=== PATIENT | male | born 1955 | race Two or more races ===

== ENCOUNTER 2021-07-10 19:08 | Emergency (ER) | payer MEDICAID, SELFPAY ==
[2021-07-10 19:10] VITALS: BP 172/85; PULSE 78; RESP 20; TEMP 36.4; O2SAT 99; BMI 25.0
--- NOTE | 2021-07-10 20:25 | EKG12_ITS ---
Test Reason : DYSRHYTHMIA Blood Pressure : / mmHG Vent. Rate : 068 BPM Atrial Rate : 068 BPM P-R Int : 130 ms QRS Dur : 078 ms QT Int : 392 ms P-R-T Axes : 073 042 075 degrees QTc Int : 416 ms Sinus rhythm with Premature atrial complexes Nonspecific ST abnormality Abnormal ECG Confirmed by DEBORAH HUANG, MILAN ([id number]), editor & co founder HERBIE ROMEO ([id number]) on 07/16/2021 2:20:05 PM Referred By: MITA Confirmed By:MILAN CABRERA MD
--- NOTE | 2021-07-10 20:35 | EX.ED.DYSGE1 ---
HPI History of Present Illness Chief Complaint: General Illness Informant: patient Onset/Context/Timing Onset: Weeks (6) Context: Gradual Onset Timing: Continuous Quality: Pressure Location: Chest Worsened by: Nothing Relieved by: Nothing Narrative Narrative: Patient presents with shortness of breath that has been getting progressively worse over the past 6 weeks. Patient feels like there is a pressure on his chest. Patient states he was diagnosed with COVID-19 approximately 6 weeks ago when this all began. Patient states nothing makes it worse and nothing makes it better. Patient also admits to some paresthesias in his feet. Patient states these are worse when he walks. Patient admits to subjective fevers and chills. [facility] Medical History COPD (chronic obstructive pulmonary disease) COVID Diabetes Hepatitis C virus Allergy/AdvReac Type Severity Reaction Status Date / Time No Known Allergies Allergy Verified 07/10/21 19:14 Social History Smoking Status: Current every day smoker tobacco type: cigarettes ROS ROS ED Constitutional Constitutional ED: Reports fever(s) and subjective Eyes Eyes: Reports blurry vision and change in vision ENT ENT ED: Reports rhinorrhea and sore throat Cardiovascular Cardiovascular: Reports chest pain; Denies palpitations Respiratory/Chest Respiratory/Chest: Reports cough and dyspnea Gastrointestinal Gastrointestinal: Reports nausea and vomiting Genitourinary Genitourinary ED: Reports dysuria and urinary frequency Musculoskeletal Musculoskeletal: Reports back pain and neck pain Integumentary Denies abscess or rash Neurologic Neurologic: Reports headache(s) and paresthesias Allergic/Immunologic Allergic/Immunologic ED: Denies mouth swelling or urticaria EXAM Physical Exam Const Vital Signs: 07/10/21 19:10 07/10/21 19:40 07/10/21 21:45 Temperature 97.5 F L Temperature Source Temporal Pulse Rate 78 67 Respiratory Rate 20 H 18 Respiratory Effort Short of Breath Blood Pressure 172/85 H 178/87 H Blood Pressure Mean 114 117 Pulse Ox 99 97 Oxygen Delivery Method Room Air Room Air 07/10/21 23:36 07/11/21 01:32 Temperature Temperature Source Pulse Rate 62 77 Respiratory Rate 16 14 Respiratory Effort Blood Pressure 148/58 H 179/62 H Blood Pressure Mean 88 101 Pulse Ox 96 97 Oxygen Delivery Method Room Air Room Air Positive well nourished, well developed and unkempt General Appearance ED: unkempt, well developed and NAD HEENT Reports moist mucous membranes Neck supple and no JVD Resp normal respiratory effort and clear to auscultation bilaterally Cardio regular rate, regular rhythm and no murmurs GI normal to inspection, nondistended, normoactive bowel sounds and non-tender Palpation: soft Extremity normal to inspection General Extremety ED: Negative for edema or tenderness General Extremity: Negative for edema Neuro oriented x3, CN's II-XII intact bilaterally and no sensory deficits noted Sensorium / Orientation: alert Motor Exam: strength 5/5 throughout Psych mental status grossly normal Appearance: unkempt Skin no rashes or lesions noted MDM MDM MDM Narrative Medical decision making narrative: Patient was given IV fluids. EKG was obtained. On my interpretation, it showed a normal sinus rhythm with a rate of 68. There are occasional PACs. AR interval, QRS interval, and QTc intervals were all normal. [place] was normal. There are nonspecific ST-T wave changes. CBC was within normal limits. Comprehensive metabolic profile showed an elevated glucose of 678. Sodium was 127, chloride was 90, and BUN was 28. Urinalysis does not show any evidence of urinary tract infection. Portable 1 view chest x-ray was obtained. On my interpretation, lung traylor are clear. There is normal cardiac silhouette. Bony thorax is normal. There is no acute process noted. Radiologist also interpreted the x-ray and agrees. Urine glucose was 1000. Patient was given 20 units of subcu Humalog. Patient was given another bolus of normal saline. Repeat basic metabolic profile was obtained. Glucose improved to 252. Sodium and chloride were normal. BUN was improved to 23. Anion gap was still normal. Patient was feeling better on reevaluation. Patient was instructed to avoid high sugar foods. Patient was instructed to follow-up with his primary care physician in 3 to 5 days. Patient was instructed return if worse in any way. Patient understood and was agreeable with the plan. All questions were answered. Lab Data Attestation: I reviewed the patient's lab results. Labs: Laboratory Results - last 24 hr 07/10/21 07/10/21 07/10/21 19:55 19:55 20:50 WBC 10.6 RBC 5.57 Hgb 17.3 H Hct 48.6 MCV 87.3 MCH 31.1 MCHC 35.6 RDW Std Deviation 39.8 RDW Coeff of Reina 12.4 Plt Count 163 MPV 11.1 Immature Gran % (Auto) 3.000 H Neut % (Auto) 67.5 Lymph % (Auto) 18.1 L [place] % (Auto) 9.2 Eos % (Auto) 1.5 Baso % (Auto) 0.7 Absolute Neuts (auto) 7.1 Absolute Lymphs (auto) 1.91 Nucleated RBC % 0 Sodium 127 L Potassium 4.7 Chloride 90 L Carbon Dioxide 31.0 Anion Gap 6 BUN 28 H Creatinine 1.04 Estim Creat Clear Calc 67.09 Est GFR (MDRD) Af Amer 92 Est GFR (MDRD) Non-Af 76 BUN/Creatinine Ratio 26.9 H Glucose 678 H* Calcium 9.3 Total Bilirubin 0.70 AST 108 H ALT 333 H Alkaline Phosphatase 251 H Troponin I High Sens 73 Total Protein 6.7 Albumin 2.8 L Globulin 3.9 Albumin/Globulin Ratio 0.7 L Lipase 158 Urine Color Yellow Urine Clarity Clear Urine pH 6.0 Ur Specific [place] 1.010 Urine Protein Negative Urine Glucose (UA) 1000 H Urine Ketones 5 H Urine Occult Blood 10 H Urine Nitrite Negative Urine Bilirubin Negative Urine Urobilinogen Normal Ur Leukocyte Esterase Negative Urine RBC 0-5 SEEN Urine WBC 0-5 SEEN Ur Squamous Epith Cells 0 SEEN Urine Bacteria 0 SEEN Urine Mucus 0 SEEN POC Glucose 07/10/21 07/11/21 07/11/21 23:50 01:15 01:55 WBC RBC Hgb Hct MCV MCH MCHC RDW Std Deviation RDW Coeff of Reina Plt Count MPV Immature Gran % (Auto) Neut % (Auto) Lymph % (Auto) [place] % (Auto) Eos % (Auto) Baso % (Auto) Absolute Neuts (auto) Absolute Lymphs (auto) Nucleated RBC % Sodium Cancelled 137 Potassium Cancelled 4.0 Chloride Cancelled 101 Carbon Dioxide Cancelled 29.0 Anion Gap Cancelled 7 BUN Cancelled 23 H Creatinine Cancelled 0.75 Estim Creat Clear Calc Cancelled 93.03 Est GFR (MDRD) Af Amer Cancelled 135 Est GFR (MDRD) Non-Af Cancelled 112 BUN/Creatinine Ratio Cancelled 30.8 H Glucose Cancelled 252 H Calcium Cancelled 8.2 L Total Bilirubin AST ALT Alkaline Phosphatase Troponin I High Sens Total Protein Albumin Globulin Albumin/Globulin Ratio Lipase Urine Color Urine Clarity Urine pH Ur Specific [place] Urine Protein Urine Glucose (UA) Urine Ketones Urine Occult Blood Urine Nitrite Urine Bilirubin Urine Urobilinogen Ur Leukocyte Esterase Urine RBC Urine WBC Ur Squamous Epith Cells Urine Bacteria Urine Mucus POC Glucose 476 H* Radiography Chest X-Ray - ED: 1 View, Read by ED Physician, Read by Radiologist and Normal Diagnostic Testing: Clinical Impression(s) from Imaging Studies Chest X-Ray 07/10/21 21:00 IMPRESSION: No acute disease. Electronically Signed: Baldemar Velez MD at 21:17 EST Tel , Service support , EKG Initial EKG: Attestation: I personally reviewed and interpreted this EKG as follows: Interpretation: Sinus Rhythm (68 with occasional PAC), No Acute Injury Pattern and Non-Specific ST Changes Prior EKG tracings: not available for review Discharge Plan Triage Chief Complaint: General Illness ED Provider: Kurt Sharma Dx/Rx/DC Orders Clinical Impression: Hyperglycemia Instructions: ED Diabetic Hyperglycemia Primary Care Provider: Care Physician,No Primary Referrals: Isis Kemp MD [STAFF PHYSICIAN] - 5-7 Days Care Physician,No Primary [Primary Care Provider] - Disposition Disposition: Home, Self Care
--- NOTE | 2021-07-10 20:40 | CM.ED ---
SW Note Referral Source: Case Find Referral Reason: No PCP SW met with patient in his room. Patient said that he has a MD, Rebecca at [facility]. No further issues or concerns voiced. SW remains available. Plan: Patient has PCP per patient Alycia DAMON
[2021-07-10] MEDS: Ibuprofen 600 MG Tablet PO (20:59)
--- NOTE | 2021-07-10 21:00 | RAD_ITS ---
EXAM: XR CHEST, 1 VIEW CLINICAL INDICATION: Chest pain TECHNIQUE: Frontal view of the chest. This report was created using Sverve report generation technology. COMPARISON: None. FINDINGS: LUNGS AND PLEURAL SPACES: Oligemia suggesting emphysema. No pneumothorax. No effusion. HEART: Unremarkable. Cardiac silhouette not enlarged. MEDIASTINUM: Central airways and mediastinal contour are unremarkable. BONES/JOINTS: Degenerative changes of the spine. Old healed left clavicle fracture. SOFT TISSUES: Unremarkable. TUBES, LINES AND DEVICES: Multiple overlying telemetry wires. RAD/Chest 1 View (Portable) IMPRESSION: No acute disease. Electronically Signed: Baldemar Velez MD at 21:17 EST Tel , Service support ,
[2021-07-10 21:10] LABS: Bacteria 0 SEEN /hpf (None Seen); Mucous, Urine 0 SEEN /hpf (<or=2+); Squamous Epithelial Cells - UA 0 SEEN /hpf (0-5)
[2021-07-10 21:14] LABS: Color, Urine Yellow (Yellow); Glucose, Dipstick 1000 mg/dl (Normal); Ketone-Dipstick 5 mg/dl (Negative); Leukocyte Esterase-Dipstick Negative /ul (Negative); Nitrite-Dipstick Negative (Negative); Occult Blood-Urine 10 /ul (Negative); Protein-Dipstick Negative (Negative); Urine Bilirubin Dipstick Negative (Negative); Urine Clarity Clear (Clear); Urine Urobilinogen Normal (Normal)
[2021-07-10 21:14] LABS: Absolute Lymphocyte Count 1.91 X10^3/uL (0.83-4.51); Absolute Neutrophil Count 7.1 X10^3/uL (2.0-7.7); Basophil# 0.07 X10^3/uL; Basophil% 0.7 % (0-1); Eosinophil# 0.16 X10^3/uL; Eosinophils% 1.5 % (0-5); Hematocrit 48.6 % (40-54); Hemoglobin 17.3 g/dL (13.0-16.5); Lymphocyte # 1.91 X10^3/ul (0.83-4.51); Lymphocyte % 18.1 % (19-41); Mean Corp Hgb Conc 35.6 g/dL (32-36); Mean Corpuscular Hgb 31.1 pg (27.0-32.0); Mean Corpuscular Volume 87.3 fL (80-94); Mean Platelet Vol. 11.1 fl (6.2-12.0); Monocyte# 0.97 X10^3/uL; Monocyte% 9.2 % (0-10); NRBC Flagged by Analyzer 0 % (0-5); Neutrophil # 7.14 X10^3/uL (2.7-7.7); Neutrophil % 67.5 % (47-70); Platelet Count 163 K/mm3 (150-450); RBC Distribution Width CV 12.4 % (11.6-14.6); RBC Distribution Width SD 39.8 fl (35.1-43.9); Red Blood Count 5.57 M/mm3 (4.6-6.2); White Blood Count 10.6 K/mm3 (4.4-11.0)
[2021-07-10 21:31] LABS: Red Blood Cells-Urine 0-5 SEEN /hpf (0-5); White Blood Cells 0-5 SEEN /hpf (0-5)
[2021-07-10 21:34] LABS: ALB/GLOB Ratio 0.7 RATIO (0.9-2.4); AST(SGOT) 108 U/L (15-37); Alanine Aminotransfer ALT/SGPT 333 U/L (16-61); Albumin, Serum 2.8 g/dL (3.2-5.0); Alkaline Phosphatase 251 U/L (45-117); Anion Gap 6 (5-15); BUN 28 mg/dL (7-18); BUN/Creat Ratio 26.9 RATIO (10-20); Calcium,Total 9.3 mg/dL (8.5-10.1); Chloride 90 mmol/L (98-107); Creatinine, Serum 1.04 mg/dL (0.70-1.30); EST Glomerular Filtration Rate 76 mL/min (>60); Est Glom Filt Rate - Afr Amer 92 mL/min (>60); Estimated Creatinine Clearance 67.09 ml/min; Globulin 3.9 g/dL (2.2-4.2); Glucose 678 mg/dL (74-106); Lipase 158 U/L (73-393); Potassium 4.7 mmol/L (3.5-5.1); Protein, Total 6.7 g/dL (6.4-8.2); Sodium Level 127 mmol/L (136-145); Troponin-I HS 73 pg/mL (3.0-78.0)
[2021-07-10 21:45] VITALS: BP 178/87; PULSE 67; RESP 18; O2SAT 97
[2021-07-10] MEDS: Insulin Lispro 100 UNIT/ML INSULN.PEN 20 UNIT SC (22:32)
[2021-07-10 23:36] VITALS: BP 148/58; PULSE 62; RESP 16; O2SAT 96
[2021-07-10 23:55] LABS: Bedside Glucose 476 mg/dL (70-110)
[2021-07-11] MEDS: 0.9% Normal Saline 1,000 ML 1000 ML IV (00:05)
[2021-07-11 01:32] VITALS: BP 179/62; PULSE 77; RESP 14; O2SAT 97
[2021-07-11 02:45] LABS: Anion Gap 7 (5-15); BUN 23 mg/dL (7-18); BUN/Creat Ratio 30.8 RATIO (10-20); Calcium,Total 8.2 mg/dL (8.5-10.1); Chloride 101 mmol/L (98-107); Creatinine, Serum 0.75 mg/dL (0.70-1.30); EST Glomerular Filtration Rate 112 mL/min (>60); Est Glom Filt Rate - Afr Amer 135 mL/min (>60); Estimated Creatinine Clearance 93.03 ml/min; Glucose 252 mg/dL (74-106); Sodium Level 137 mmol/L (136-145)
[2021-07-11 03:00] VITALS: BP 145/63; PULSE 63; RESP 16; O2SAT 95
== END 2021-07-11 03:06 | disposition home or self-care (01) ==
PROVIDERS: Emergency Provider Emergency Medicine
DX: E11.65 Type 2 diabetes mellitus with hyperglycemia (principal); Z86.16 Personal history of COVID-19; R20.2 Paresthesia of skin; J44.9 Chronic obstructive pulmonary disease, unspecified; B19.20 Unspecified viral hepatitis C without hepatic coma; F17.210 Nicotine dependence, cigarettes, uncomplicated; I49.1 Atrial premature depolarization
CPT/HCPCS: 71045; 80048; 80053; 81001; 82962; 83690; 84484; 85025; 87426; 93005; 96360; 96361; 99284; J7030; J7040; A4216

== ENCOUNTER → 2022-05-16 | Outpatient (CLI) | payer MEDICARE, MEDICAID, SELFPAY ==
--- NOTE | 2022-05-16 10:54 | CT_ITS ---
STUDY: CT RIGHT SHOULDER REASON FOR EXAM: Male, 67 years old. Preoperative planning. RADIATION DOSAGE (If Supplied By Facility): CTDIvol = ( 19.06 ) mGy, DLP = ( 445.78 ) mGycm TECHNIQUE: The patient was scanned in a multi detector CT scanner. High resolution transaxial imaging was performed without the administration of intravenous contrast material. Sagittal and coronal images were reconstructed. Individualized dose optimization techniques were used for this CT. COMPARISON: None. FINDINGS: There is moderate osteoarthritis, with moderate articular joint space narrowing and moderate osteoarthritic spurring. Normal glenoid rim, neck and visualized scapula. Decreased distance between the humeral head and the acromion. This is in keeping with rotator cuff pathology. Normal coracoid process. Normal visualized lateral clavicle. Type III right AC joint separation. There is a Type II morphology (curved), with a neutral orientation. Normal visualized muscles and soft tissue structures. CT/Extremity Upper without Contra IMPRESSION: Moderate degree of osteoarthritis of the glenohumeral joint. Type III right clavicular joint separation. Decreased distance between the acromion and the humeral head suggestive of rotator cuff pathology. Electronically Signed: Michel Carballo MD at 14:31 EDT ,
== END | disposition home or self-care (01) ==
PROVIDERS: Referring Provider Student in an Organized Health Care Education/Training Program; Visit Provider Student in an Organized Health Care Education/Training Program
DX: Z01.818 Encounter for other preprocedural examination (principal); M19.011 Primary osteoarthritis, right shoulder; M25.511 Pain in right shoulder
CPT/HCPCS: 73200

== ENCOUNTER 2022-05-30 12:52 | Observation (INO) | payer MEDICARE, MEDICAID, SELFPAY ==
--- NOTE | 2022-05-16 12:21 | EKG12_ITS ---
Test Reason : PRE OP Blood Pressure : / mmHG Vent. Rate : 070 BPM Atrial Rate : 070 BPM P-R Int : 140 ms QRS Dur : 082 ms QT Int : 398 ms P-R-T Axes : 075 054 067 degrees QTc Int : 429 ms Normal sinus rhythm Septal infarct , age undetermined , cannot be excluded Abnormal ECG Confirmed by LUCA HUANG, GLORIA ([id number]), rewrite editor RAUL JAFFE ([id number]) on 05/18/2022 7:11:36 AM Referred By: BARON Confirmed By:GLORIA SEGOVIA MD
--- NOTE | 2022-05-16 12:30 | RAD_ITS ---
STUDY: X-RAY CHEST REASON FOR EXAM: Male, 67 years old. Preop right shoulder surgery. TECHNIQUE: PA and lateral views of the chest. COMPARISON: None. FINDINGS: The lungs are clear and mildly hyperexpanded.. There is no demonstrated pleural abnormality. Normal size heart. Normal mediastinum and melinda. Normal visualized pulmonary arteries. There is atherosclerotic calcification of the aortic arch with tortuosity. There are diffuse degenerative changes of the visualized thoracic spine. There is degenerative osteoarthritis of the bilateral shoulders. No visualized rib fractures. There is no demonstrated abnormality of the visualized soft tissue structures of the upper abdomen. RAD/Chest PA and Lateral IMPRESSION: Degenerative changes, as described above. No demonstrated acute cardiopulmonary process. Electronically Signed: Bob Lee DO at 21:45 EDT ,
[2022-05-16 12:57] LABS: Absolute Lymphocyte Count 1.61 X10^3/uL (0.83-4.51); Absolute Neutrophil Count 2.6 X10^3/uL (2.0-7.7); Basophil# 0.04 X10^3/uL; Basophil% 0.8 % (0-1); Eosinophil# 0.46 X10^3/uL; Eosinophils% 8.7 % (0-5); Hematocrit 37.7 % (40-54); Hemoglobin 12.7 g/dL (13.0-16.5); Lymphocyte # 1.61 X10^3/ul (0.83-4.51); Lymphocyte % 30.6 % (19-41); Mean Corp Hgb Conc 33.7 g/dL (32-36); Mean Corpuscular Hgb 30.7 pg (27.0-32.0); Mean Corpuscular Volume 91.1 fL (80-94); Mean Platelet Vol. 9.5 fl (6.2-12.0); Monocyte# 0.51 X10^3/uL; Monocyte% 9.7 % (0-10); NRBC Flagged by Analyzer 0 % (0-5); Neutrophil # 2.63 X10^3/uL (2.7-7.7); Neutrophil % 49.8 % (47-70); Platelet Count 152 K/mm3 (150-450); RBC Distribution Width CV 13.6 % (11.6-14.6); Red Blood Count 4.14 M/mm3 (4.6-6.2); White Blood Count 5.3 K/mm3 (4.4-11.0)
[2022-05-16 13:24] LABS: Hemoglobin A1c 6.1 % (3.8-5.6)
[2022-05-16 13:51] LABS: Albumin, Serum 3.3 g/dL (3.2-5.0); Anion Gap 5 (5-15); BUN 15 mg/dL (7-18); Calcium,Total 9.1 mg/dL (8.5-10.1); Chloride 107 mmol/L (98-107); Creatinine, Serum 0.88 mg/dL (0.70-1.30); EST Glomerular Filtration Rate 92 mL/min (>60); Est Glom Filt Rate - Afr Amer 111 mL/min (>60); Glucose 174 mg/dL (74-106); Potassium 3.9 mmol/L (3.5-5.1); Sodium Level 142 mmol/L (136-145)
[2022-05-20 14:29] LABS: Magnesium 1.7 mg/dL (1.6-2.6)
[2022-05-30] VITALS (20 sets, daily range): BP systolic 118–197; BP diastolic 76–98; PULSE 66–89; RESP 2–188; TEMP 36.2–36.8; O2SAT 93–100; BMI 27.2; BMI 27.3
--- NOTE | 2022-05-30 | SHO_PTH ---
PATIENT: SPRING JIMENEZ LOC: MS3 U#:[id number] AGE/SX: 67/M [place]OM[place] [facility] [place]05/30/[address]: Dr. Дмитрий Gonzales DO : 1955 BED: 1 DIS: 05/31/2022 SPEC #: [id number] RECD: 05/30/22 14:39 STATUS: JESUS REMartinez #: [id number] JOSE JUAN: 05/30/22 00:[address]: Дмитрий Gonzales DEPT: SURGICAL PATHOLOGY RECD BY: Taras Jovel ENTERED: 05/31/22 09:59 SP TYPE: HUMERUS OTHR DR: DO Dr. Mary Ellen Love DO Tissues: Humerus, NOS Procedures: Decalcification bone/plaque Surgery Specimen Level IV HEADER OPERATION: Total shoulder replacement PRE-OP DIAGNOSIS: Primary osteoarthritis, right shoulder with rotator cuff tear TISSUE SUBMITTED: Right humeral head MICROSCOPIC DIAGNOSIS Right humeral head, total shoulder replacement/resection: Humeral head with mild degenerative osteoarthritic changes. OSCAR:manas 06/05/2022 MICROSCOPIC DESCRIPTION Slides are reviewed. GROSS DESCRIPTION Received is one container labeled with the patient's name and designated right humeral head. The specimen consists of a humeral head measuring 5 x 5 x 3 cm. The articular surface shows areas of erosion and osteophyte formation. No soft tissue is identified. Information Systems Security Specialist sections are submitted in one cassette after decalcification. / OSCAR:manas 05/31/2022 TC:5 CPT: 74541, 48544
[2022-05-30] MEDS: Lactated Ringers 1,000 ML 15 ML IV ×2 (09:34→11:00)
[2022-05-30] MEDS: Gabapentin 600 MG Tablet PO (09:34)
[2022-05-30] MEDS: Acetaminophen 500 MG Tablet 1000 MG PO ×2 (09:34→21:48)
[2022-05-30] MEDS: Magnesium 2 GM for ERAS IV (09:34)
[2022-05-30] MEDS: Ipratropium/Albuterol Sulfate 3 ML AMPUL.NEB INHALATION ×3 (09:35→18:49)
[2022-05-30 09:47] LABS: Prothrombin Time (Protime)PT. 12.8 SECONDS (11.7-14.9)
[2022-05-30 09:48] LABS: Partial Thromboplast Time 24.8 Seconds (24.1-36.2)
[2022-05-30 10:01] LABS: Bedside Glucose 184 mg/dL (74-106)
[2022-05-30] MEDS: Cefazolin 2 GM in 0.9% Normal Saline 100 ML IV (10:15)
[2022-05-30] MEDS: TXA 1000mg in NS100 100ml (IVPB at Incision) 660 MG IV (10:25)
[2022-05-30] MEDS: dexAMETHasone 10 MG/ML Vial IV (10:25)
[2022-05-30] MEDS: TXA 1000mg in NS100 100ml (IVPB at Closure) 660 MG IV (12:05)
--- NOTE | 2022-05-30 12:13 | RAD_ITS ---
STUDY: X-RAY - RIGHT SHOULDER REASON FOR EXAM: Male, 67 years old. Post op -- AP and Lateral X-Ray of operative shoulder in PACU TECHNIQUE: 2 view(s) of the shoulder. COMPARISON: None. FINDINGS: The patient is status post total shoulder replacement. There is good alignment. Postoperative soft tissue changes. RAD/Shoulder min 2 Views IMPRESSION: Status post right total shoulder replacement. There is good alignment. Postoperative soft tissue changes. Electronically Signed: Michel Carballo MD at 13:17 EST ,
[2022-05-30] MEDS: Sugammadex Sodium 200 MG/2 ML VIAL IV (12:46)
--- NOTE | 2022-05-30 12:53 | OP.PCM_ITS ---
Report of Operation Date of Procedure: 05/30/22 Description of Surgical Findings:: Preoperative diagnosis: Right shoulder rotator cuff arthropathy Postoperative diagnosis: Right shoulder rotator cuff arthropathy Procedure: Right reverse total shoulder arthroplasty Surgeon: Дмитрий Gonzales DO Rotary Swaging Machine Operator: Shanthi Werner PA-C Anesthesia: General endotracheal Ham Pumper: Josep King CRNA Complications: None apparent Drains: None Estimated blood loss: 200 cc Urinary output: None IV fluids: 1500 cc crystalloid Specimens: None Surgical implants: Tornier Aequalis PerFORM+ reversed lateralized +6 mm baseplate 29 mm diameter, standard glenosphere cobalt chrome 39 mm diameter, Tornier perform inlay stem size #3, +3 size #3 39 mm diameter polyethylene insert, 35 mm central screw and peripheral screws Surgical indications: This is a 67-year-old male with persistent right shoulder pain. 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 X-ray and MRI by another provider revealed full-thickness retracted rotator cuff with early rotator cuff arthropathy changes.. I recommended a reverse shoulder arthroplasty. We obtained a preoperative CT scan for planning. The risks, benefits, alternatives the procedure was reviewed with the patient and he agreed to proceed. Risks included but were not limited to bleeding, infection, instability, loss of life or limb, risk of anesthesia, neurovascular injury, persistent pain, stiffness, prolonged immobilization, need for additional surgery, loosening of orthopedic hardware. He expressed understanding and wished to proceed with surgery. Surgical details: Patient arrived to [facility] morning of the procedure and was greeted by the same day surgery staff. Prior to his procedure, I greeted the patient in the preoperative holding area I identified the patient by name, record number, and date of . Informed consent was confirmed. The operative extremity was marked. All questions were answered to patient satisfaction. Patient was also seen by anesthesia staff. Interscalene block was deemed contraindicated by anesthesia staff due to history of COPD. At time of his procedure, patient was brought to the operative suite and positioned supine on a standard table with a beachchair attachment. General an esthesia was induced after all bony prominences were well-padded. Endotracheal tube was placed. After adequate anesthesia and securing the tube, we prepared the patient to be positioned in the beachchair position. A well-padded head of digital was applied. The nonoperative extremity was placed in a well arm urbina. He was then brought into the beachchair position after we confirmed an appropriate blood pressure. We then spun the bed 45 degrees. The operative extremity was then prepared. In the butterfly wing of the bed was removed and a well-padded torso strap was applied to secure the patient to the bed. The operative extremity was now free. We then prepped and draped the right upper extremity in normal, sterile orthopedic fashion. We then performed a timeout with all parties in attendance in agreement with the side, site, and operation be performed. 2 g Ancef was administered prior to incision by anesthesia staff, as well as 1 g TXA IV. No concerns were voiced and we elected to proceed. I first marked a standard deltopectoral incision just lateral to the coracoid process in line with the long axis of the humerus. Skin was sharply incised with 10 blade scalpel. I then dissected bluntly through the subcutaneous layers and found the fat stripe between the deltoid and pectoralis major. The cephalic vein was then identified and protected. It was retracted laterally with the deltoid. I then bluntly dissected underneath the deltoid with a Black elevator. Deion retractor was placed. The upper 1 cm of the pectoralis major was released. I then identified the long head of the biceps tendon in the intertubercular groove. This was tenodesed in situ with #2 FiberWire. I then amputated the biceps proximal to the tenodesis site and followed the tendon to the supraglenoid tubercle where it was amputated. This identified the lesser and greater tuberosities. The supraspinatus was completely torn and retracted with an exposed greater tuberosity. I then performed a subscapularis peel while rotating the humerus externally. I tagged the subscapularis for possible repair later with a tagging suture. I then made a anatomic neck cut of the cartilaginous surface of the humeral head. Sizing plate for a size # 3 stem was utilized to determine appropriate reaming size. A central pin was placed engaging the lateral cortex of the humerus. A size # 3 reamer was used to ream the humeral metaphysis and prepare for the inlay stem. A canal finding reamer was utilized prior to sequential broaching to a size # 3 short stem with excellent rotational and axial purchase in the humerus. I remove the broach handle left the size # [address] I then subluxed the humerus posterior to the glenoid. I then placed retractors around the posterior and anterior glenoid to expose the glenoid. Glenoid labrum was removed with Bovie cautery protecting the axillary nerve. There was significant posterior glenohumeral capsular contracture causing difficulty with exposure of the glenoid. I was able to fully expose the glenoid however planned retroversion from the custom 3D printing guide was unable to be duplicated due to capsular exposure despite extensive capsular releases. Accepting slight anteversion from planned central screw trajectory, I placed the center pin bicortically into the glenoid vault. I placed a 29 mm baseplate trial which had appropriate coverage along the glenoid. I then reamed the glenoid face till flat surface, reaming approximately 3 mm of inferior and anterior lip of the glenoid face. I drilled bicortically for the central screw. We then inserted the baseplate and central screw the assembled baseplate to an appropriate depth with excellent cortical fixation. A [place] was used to confirm depth. For peripheral screws then were placed in the peripheral holes with excellent purchase. The baseplate had excellent purchase and the entire scapula would rotate with rotation of the baseplate. We then impacted the 39 mm glenosphere with a standard eccentricity and tightened the locking screw mechanism. We then removed retractors and turned our attention back to the humerus. I placed a standard +0 polyethylene insert. I then reduced the shoulder. There was excellent range of motion and stability in all planes of motion. I dislocated the shoulder in retry with a +3 mm insert which provided better deltoid tensioning. We selected this as our final size. We removed trials from the humerus after final dislocation. I copiously irrigated the canal. Final humeral implant was placed on hand and then impacted to an appropriate depth. Final + 3 mm polyethylene insert was placed. Final reduction was then performed. I then copiously irrigated the wound with irrisept and normal saline solution. Hemostasis was excellent. The axillary nerve was visualized and appeared to be intact. I performed a periarticular and subcutaneous block with 100 cc total of a solution containing 5 mg morphine sulfate, Toradol 30 mg, epinephrine 0.6 mg, and ropivacaine 200 mg. The subscapularis was then identified with a tagging suture. Repair would have been likely under undue tension and likely failed. I elected to not perform a subscapularis repair. We then copiously irrigated the wound with sterile Betadine and normal saline solution. We reapproximated the interval with 0 Vicryl suture. Subcutaneous layers were reapproximated with 2 -0 Vicryl suture. Skin was finally running V- Loc 3-0 Monocryl suture and Dermabond. A sterile silver Mepilex dressing was applied. Patient was then placed in a simple sling. Patient tolerated procedure well without complication. He was positioned back in the supine position extubated in the operative suite. He was transferred to the rpitcairn and subsequently to PACU in stable condition. Need for skilled assistant to the vice president: Shanthi Werner PA-C was critical to the outcome of the case. During the course of the procedure the physician assistant to the vice president played a vital role. Her intimate knowledge of my steps in the procedure aided in safe and expedient completion of the procedure. The PA played a vital role in positioning particularly in obtaining the appropriate positioning. The PA was also vital in the retraction of soft tissues during the exposure and protecting vital structures. The PA was also vital and protecting soft tissues during times of bony cuts. She also played a vital role in closure with my direct supervision. The PA was also important during reduction and dislocation of the joint and trials intraoperatively. Intraoperative medications: 2 g Ancef IV, 1 g TXA IV x2 Post Operative Plan: Patient will be placed in observation overnight for medical monitoring due to multiple comorbidities including COPD. Weightbearing: Nonweightbearing right upper extremity, okay for pendulums. Range of motion of wrist elbow and hand as tolerated. Antibiotics: 2 g Ancef IV prior to incision, 24 hours IV antibiotics postoperatively DVT Prophylaxis: Aspirin enteric-coated 81 mg twice daily starting tomorrow Srivastava: None Dressing: Maintain silver dressing x7 days. Okay to shower dressing on started on day 4 X-Rays: 2 weeks postop in the office Pain Medication: Oxycodone Rx upon discharge Follow-up: 2 weeks post-operatively with me in the office
[2022-05-30] MEDS: Insulin Lispro 100 UNIT/ML INSULN.PEN SC ×2 (14:11→21:48)
[2022-05-30 14:21] LABS: Bedside Glucose 270 mg/dL (74-106)
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
[2022-05-30] MEDS: Cefazolin 1 GM/50 ML BAG IV (15:26)
[2022-05-30 17:10] LABS: Bedside Glucose 292 mg/dL (74-106)
[2022-05-30] MEDS: Celecoxib 200 MG Capsule 400 MG PO (21:47)
[2022-05-30] MEDS: Senna/Docusate Sodium 1 Tablet 2 TABLET PO (21:47)
[2022-05-30] MEDS: Carvedilol 25 MG Tablet PO (21:47)
[2022-05-30] MEDS: Atorvastatin Calcium 20 MG Tablet PO (21:48)
[2022-05-30 23:25] LABS: Bedside Glucose 239 mg/dL (74-106)
[2022-05-31 00:30] VITALS: BP 134/76; PULSE 69; RESP 18; TEMP 36.8; O2SAT 97
[2022-05-31] MEDS: Cefazolin 1 GM/50 ML BAG IV ×2 (00:32→09:16)
--- NOTE | 2022-05-31 03:15 | NURSING ---
Bladder scanned for >398. Pt c/o abd discomfort. Straight cath for 450cc.
[2022-05-31 03:20] VITALS: BMI 27.3
[2022-05-31 06:00] VITALS: BP 186/87; PULSE 80; RESP 18; TEMP 36.6; O2SAT 97
[2022-05-31 06:10] LABS: Hematocrit 34.4 % (40-54); Hemoglobin 11.2 g/dL (13.0-16.5); Mean Corp Hgb Conc 32.6 g/dL (32-36); Mean Corpuscular Hgb 29.6 pg (27.0-32.0); Mean Platelet Vol. 10.1 fl (6.2-12.0); Platelet Count 141 K/mm3 (150-450); RBC Distribution Width CV 13.5 % (11.6-14.6); RBC Distribution Width SD 45.4 fl (35.1-43.9); Red Blood Count 3.78 M/mm3 (4.6-6.2); White Blood Count 11.4 K/mm3 (4.4-11.0)
[2022-05-31] MEDS: Acetaminophen 500 MG Tablet 1000 MG PO ×2 (06:22→14:19)
[2022-05-31] MEDS: Insulin Lispro 100 UNIT/ML INSULN.PEN SC ×3 (06:23→17:00)
[2022-05-31 06:37] LABS: Anion Gap 4 (5-15); BUN 21 mg/dL (7-18); Calcium,Total 8.8 mg/dL (8.5-10.1); Chloride 104 mmol/L (98-107); Creatinine, Serum 1.05 mg/dL (0.70-1.30); EST Glomerular Filtration Rate 75 mL/min (>60); Est Glom Filt Rate - Afr Amer 91 mL/min (>60); Estimated Creatinine Clearance 65.58 ml/min; Glucose 241 mg/dL (74-106); Potassium 5.2 mmol/L (3.5-5.1); Sodium Level 135 mmol/L (136-145)
[2022-05-31 06:45] LABS: Bedside Glucose 218 mg/dL (74-106)
[2022-05-31] MEDS: Lisinopril 20 MG Tablet PO (07:14)
--- NOTE | 2022-05-31 07:51 | DCINST_ITS ---
Discharge Instructions Follow Up Care Test Results: Test results from this visit will be discussed in further detail at your follow- up appointment, if applicable. Discharge Plan Admission Admit Date/Time: 05/30/22 12:52 Primary Reason for Your Visit: Right shoulder replacement Attending Provider: Дмитрий Gonzales Primary Care Provider: Jefry Gregory Consulting Providers: Mary Ellen Castillo Instructions Additional Instructions / Restrictions: Follow preprinted instructions from your surgeons office Discharge Orders/Prescriptions Prescriptions: New aspirin 81 mg Tablet,Delayed Release (Dr/Ec) 81 mg PO BID 14 Days Qty: 28 0RF oxycodone 5 mg Tablet 5 - 10 mg PO Q4H PRN PRN (Reason: Pain Score 4-10) 7 Days Qty: 42 0RF No Action celecoxib 200 mg Capsule 400 mg PO BID furosemide 40 mg tablet 40 mg PO DAILY Label Comments: TAKE 1 TABLET BY MOUTH ONCE DAILY metformin 500 mg tablet 1,000 mg PO BID carvedilol 25 mg tablet 25 mg PO BID Label Comments: TAKE 1 TABLET BY MOUTH TWICE DAILY WITH MEALS lisinopril 20 mg tablet 20 mg PO DAILY Label Comments: TAKE 1 TABLET BY MOUTH ONCE DAILY omeprazole 40 mg capsule,delayed release(DR/EC) 40 mg PO DAILY Label Comments: TAKE 1 CAPSULE BY MOUTH ONCE DAILY simvastatin 40 mg tablet 40 mg PO QHS Label Comments: TAKE 1 TABLET BY MOUTH NIGHTLY aspirin 81 mg Tablet 81 mg PO DAILY albuterol sulfate 90 mcg/actuation HFA aerosol inhaler 2 inh INHALATION Q6H PRN PRN (Reason: Wheezing) Label Comments: INHALE 2 PUFFS BY MOUTH EVERY 6 HOURS NEEDED FOR WHEEZING ferrous sulfate 325 mg (65 mg iron) tablet,delayed release (DR/EC) 975 mg PO DAILY Label Comments: TAKE 1 TABLET BY MOUTH THREE TIMES DAILY WITH MEALS. Januvia 25 mg tablet 25 mg PO DAILY Label Comments: TAKE 1 TABLET BY MOUTH ONCE DAILY Incruse Ellipta 62.5 mcg/actuation blister with device 1 inh INHALATION DAILY Label Comments: INHALE 1 PUFF BY MOUTH ONCE DAILY Other Ambulatory Orders: 12 Lead EKG (Routine) Timeframe: [id number] Facility: [facility] - Location: Cardiovascular Services Ordered By: Dr. Дмитрий Gonzales Referrals / Follow Up: Jefry Gregory DO [Primary Care Provider] - Spittle,Дмитрий, DO [Med Staff - Active Staff] - Within 2 Weeks Disposition Disposition (needs filled in before D/C Order can be placed): Home, Self Care
--- NOTE | 2022-05-31 07:51 | PCM.PN.ORT ---
Subjective Subjective Patient seen and examined. Denies new complaints. Pain is adequately controlled with current pain regimen. Denies fevers, chills, nausea vomiting, chest pain or shortness of breath. Objective Data Objective Data Vital Signs: Vital Signs Temp Pulse Resp BP Pulse Ox O2 Del Method O2 Flow Rate 97.9 F 80 18 186/87 H 97 Room Air 1 05/31/22 06:00 05/31/22 06:00 05/31/22 06:00 05/31/22 06:00 05/31/22 06:00 05/31/22 06:00 05/30/22 19:57 Oxygen Flow Rate (L/min) 1 Oxygen Delivery Method Room Air Weight: 174 lb 2.643 oz Body Mass Index (BMI) 27.2 Intake & Output: Intake and Output for Last 24 Hours 05/29/22 05/30/22 05/31/22 23:59 23:59 23:59 Intake Total 2134 / 2334 920.5 / 920.5 Output Total 600 / 600 Balance 2134 / 2184 320.5 / 320.5 Lab / Micro Data Result Diagrams: 05/31/22 05:45 05/31/22 05:45 Labs: Laboratory Results - last 24 hr 05/30/22 09:29: POC Glucose 184 H 05/30/22 09:30: PT 12.8, INR 1.0, APTT 24.8 05/30/22 13:50: POC Glucose 270 H 05/30/22 16:49: POC Glucose 292 H 05/30/22 21:44: POC Glucose 239 H 05/31/22 05:45: WBC 11.4 H, RBC 3.78 L, Hgb 11.2 L, Hct 34.4 L, MCV 91.0, MCH 29.6, MCHC 32.6, RDW Std Deviation 45.4 H, RDW Coeff of Reina 13.5, Plt Count 141 L, MPV 10.1 05/31/22 05:45: Sodium 135 L, Potassium 5.2 H, Chloride 104, Carbon Dioxide 27.0, Anion Gap 4 L, BUN 21 H, Creatinine 1.05, Estim Creat Clear Calc 65.58, Est GFR (MDRD) Af Amer 91, Est GFR (MDRD) Non-Af 75, BUN/Creatinine Ratio 20.0, Glucose 241 H, Calcium 8.8 05/31/22 06:21: POC Glucose 218 H Micro: Microbiology 05/16/22 12:44 Swab (Method) Nasal Screen MRSA/MSSA - Final Radiography Diagnostic Testing: Radiology Impression Shoulder X-Ray 05/30/22 12:13 IMPRESSION: Status post right total shoulder replacement. There is good alignment. Postoperative soft tissue changes. Electronically Signed: Michel Carballo MD at 13:17 EST , Physical Exam Narrative General - A&Ox3, NAD. VSS/AF. Right upper Extremity - SILT & motor intact in radial, ulnar, musculocutaneous, axillary, and median nerve distributions. Radial, ulnar pulses 2+. Compartments soft and compressible. BCR in finger tips. Sling in place. Incisional dressing C/D/I. Negative Homans' sign bilaterally Assessment & Plan Assessment/Plan (1) Arthritis of right shoulder region: PLAN: POD#1 s/p right reverse shoulder arthroplasty - Pain control - Medicine following for medical management -OT-nonweightbearing right upper extremity, pendulums only right shoulder. Range of motion as tolerated right elbow wrist and hand. - DVT PPX -aspirin 81 mg twice daily, early mobilization -Discharge home today if cleared by internal medicine and occupational therapy. Follow-up in 2 weeks. Prescription for oxycodone sent to pharmacy.
[2022-05-31] MEDS: oxyCODONE 5 MG Tablet PO ×2 (08:48→15:51)
[2022-05-31] MEDS: Carvedilol 25 MG Tablet PO (09:14)
[2022-05-31] MEDS: Pantoprazole Sodium 40 MG Tablet PO (09:14)
[2022-05-31] MEDS: Furosemide 40 MG Tablet PO (09:14)
[2022-05-31] MEDS: Aspirin E.C. 81 MG Tablet PO (09:14)
[2022-05-31] MEDS: Ferrous Sulfate 325 MG Tablet 975 MG PO (09:15)
[2022-05-31] MEDS: Senna/Docusate Sodium 1 Tablet 2 TABLET PO (09:15)
[2022-05-31] MEDS: Tamsulosin HCl 0.4 MG Capsule PO (09:15)
[2022-05-31] MEDS: Celecoxib 200 MG Capsule 400 MG PO (09:15)
[2022-05-31 09:20] VITALS: BP 150/76; PULSE 80; RESP 18; TEMP 36.6; O2SAT 93
--- NOTE | 2022-05-31 10:45 | CASEMGMT ---
RN FLOWER DUMP GRADER CM to room to meet with patient for initial transition planning/care coordination assessment. TARSHA CRENSHAW introduced self and role at [facility]. Pt voices understanding and consents to assessment at this time. Pt sitting up in chair in room no distress at this time. Pt is A/O at this time and answers all questions appropriately. Care providers, pharmacy, and demographics verified/updated at this time. PCP: Dr Gregory Specialists: Dr Gonzales-jessie Preferred Pharmacy: [facility] Retail Insurance: [facility] Dual/[place] Prescription Benefit: Yes Living Will/HPOA: Pt does not currently have LW/HCPOA and declines info at this time. Pt made aware that he can contact SW as an out-pt and make appt in the future if he decides he would like to talk with someone about this or would like to utilize [facility] social work for advanced directive completion. Given [employer] card with information and contact number. Pt expresses understanding. LNOK: son, Dexter Mohr Living Arrangements: Lives w/friend, Kurt Anderson, in mobile home w/ramp entrance. Independent prior to surgery. States Kurt can assist @ home, if needed. Transportation: Pt states drives self and states no transportation concerns at this time. Friend, Kurt, will take pt home @ d/c. DME: Denies using any DME and denies needs. HHC/SNF: No hx of either. No needs identified. Pt wishes to return home and states has no concerns with going home at time of discharge. Pt voices no concerns/needs at this time. Advised pt to ask for CM if any questions/concerns/needs arise. Voices understanding. PLAN: Home Ashley LYNN RN, CM
[2022-05-31 12:00] VITALS: BP 150/76; PULSE 80; RESP 18; TEMP 36.6; O2SAT 93
[2022-05-31 12:11] LABS: Bedside Glucose 304 mg/dL (74-106)
--- NOTE | 2022-05-31 12:20 | PCM.PN.HOSP ---
Subjective Subjective Patient states that he is having significant shoulder pain now that his block has worn off. States he slept very well overnight. Did have to be straight cath through the night and currently awaiting urine production. Objective Data Objective Data Vital Signs: Vital Signs Temp Pulse Resp BP Pulse Ox O2 Del Method O2 Flow Rate 98 F 80 18 150/76 H 93 Room Air 1 05/31/22 09:20 05/31/22 09:20 05/31/22 09:20 05/31/22 09:20 05/31/22 09:20 05/31/22 09:20 05/30/22 19:57 Oxygen Flow Rate (L/min) 1 Oxygen Delivery Method Room Air Weight: 79 kg Body Mass Index (BMI) 27.2 Intake & Output: Intake and Output for Last 24 Hours 05/29/22 05/30/22 05/31/22 23:59 23:59 23:59 Intake Total 2134 / 2334 970.5 / 970.5 Output Total 600 / 600 Balance 2134 / 2184 370.5 / 370.5 Lab / Micro Data Result Diagrams: 05/31/22 05:45 05/31/22 05:45 Labs: Laboratory Results - last 24 hr 05/30/22 13:50: POC Glucose 270 H 05/30/22 16:49: POC Glucose 292 H 05/30/22 21:44: POC Glucose 239 H 05/31/22 05:45: WBC 11.4 H, RBC 3.78 L, Hgb 11.2 L, Hct 34.4 L, MCV 91.0, MCH 29.6, MCHC 32.6, RDW Std Deviation 45.4 H, RDW Coeff of Reina 13.5, Plt Count 141 L, MPV 10.1 05/31/22 05:45: Sodium 135 L, Potassium 5.2 H, Chloride 104, Carbon Dioxide 27.0, Anion Gap 4 L, BUN 21 H, Creatinine 1.05, Estim Creat Clear Calc 65.58, Est GFR (MDRD) Af Amer 91, Est GFR (MDRD) Non-Af 75, BUN/Creatinine Ratio 20.0, Glucose 241 H, Calcium 8.8 05/31/22 06:21: POC Glucose 218 H 05/31/22 11:48: POC Glucose 304 H Micro: Microbiology 05/16/22 12:44 Swab (Method) Nasal Screen MRSA/MSSA - Final Radiography Diagnostic Testing: Radiology Impression Shoulder X-Ray 05/30/22 12:13 IMPRESSION: Status post right total shoulder replacement. There is good alignment. Postoperative soft tissue changes. Electronically Signed: Michel Carballo MD at 13:17 EST , Physical Exam Const alert, oriented x3, no apparent distress, healthy appearing and well nourished Constitutional Narrative: Upper middle-aged white male, sitting up on the edge of the bed, occupational therapy at the bedside, no significant distress HEENT head/scalp atraumatic and moist oral mucous membranes Head and Scalp: normocephalic Resp normal respiratory effort, no retractions, no use of accessory muscles and clear to auscultation bilaterally Resp Narrative: Diffusely diminished but clear Auscultation: Negative for crackles, rales, rhonchi or wheezes Cardio regular rate, regular rhythm, S1 normal heart sound, S2 normal heart sound, no murmurs, no rub, no gallops and no clicks GI normal to inspection, nondistended, normoactive bowel sounds, soft to palpation and non-tender Extremity no clubbing, cyanosis or edema Extremity Narrative: Plus peripheral pulses upper and lower extremity, right upper extremity in postoperative sling, swelling noted anteriorly, postop dressing clean dry and intact Neuro oriented x3 and no focal motor deficits Neuro Narrative: Unable to move right arm secondary to postop but can wiggle fingers otherwise all movements are symmetrical and without any signs of weakness Speech: speech normal Assessment & Plan Assessment/Plan (1) Arthritis of right shoulder region: PLAN: Plan Osteoarthritis/rotator cuff arthropathy right shoulder -Postop day 1 reverse total shoulder arthroplasty -Pain management per primary service -Recommend bowel regimen -Therapy services per primary service -Postop brace per primary service Urinary retention -Flomax 0.4x1 dose now -Likely related to anesthesia used for surgery and opiates for pain management -Did require straight cath overnight -Currently awaiting independent urine production DM-2 -SSI -Accu-Cheks as ordered -Hold home Januvia okay to restart at discharge -Hold home metformin okay to restart at discharge GERD -Continue PPI CAD/HTN/HPL -History of cardiac stents in 2002 and 2004 -No current cardiac complaints -Continue home simvastatin -Continue home lisinopril -Continue Lasix -Continue home carvedilol -Continue home aspirin COPD -As needed albuterol -Continue home inhaler Anemia -Continue home iron supplementation Tobacco abuse -Recommend cessation -Nicotine patch if needed DVT prophylaxis -Per primary service Disposition -Okay to discharge home as long as patient is able to urinate Charges/Coding Visit Charges OBSV E&M: 68892 Initial observation care L2
[2022-05-31 14:11] VITALS: BMI 27.3
[2022-05-31 14:17] VITALS: BP 110/60; PULSE 60; RESP 18; TEMP 36.6; O2SAT 96
[2022-05-31 17:21] LABS: Bedside Glucose 214 mg/dL (74-106)
--- NOTE | 2022-06-02 11:21 | PCM.DC.SUM ---
Providers Date of Admission: 05/30/22 Primary Care Physician: Dr. Jefry Gregory, DO Consultations 05/30/22 12:14 Consult: Hospitalist Routine Consulting Provider: Mary Ellen Castillo Reason for Consult: Post op R reverse shoulder replacement, medical management EMERGENT Consult: No MD Notified: Yes Date Notified: 05/30/22 Time Notified: 15:21 Method of Notification: Text Reason For Visit: RT TOTAL SHOULDER REVERSE Diagnosis Discharge Diagnosis (1) Arthritis of right shoulder region: Status: Acute Code(s): M19.011 - Primary osteoarthritis, right shoulder Plan: POD#1 s/p right reverse shoulder arthroplasty - Pain control - Medicine following for medical management -OT-nonweightbearing right upper extremity, pendulums only right shoulder. Range of motion as tolerated right elbow wrist and hand. - DVT PPX -aspirin 81 mg twice daily, early mobilization -Discharge home today if cleared by internal medicine and occupational therapy. Follow-up in 2 weeks. Prescription for oxycodone sent to pharmacy. Medications at Discharge Home Medications albuterol sulfate 90 mcg/actuation aerosol inhaler 2 inh inhalation Q6H PRN PRN Wheezing 05/20/22 aspirin 81 mg tablet 81 mg PO DAILY 05/20/22 carvedilol 25 mg tablet 25 mg PO BID HEART 05/20/22 celecoxib 200 mg capsule 400 mg PO BID SHOULDER PAIN 05/20/22 ferrous sulfate 325 mg (65 mg iron) tablet,delayed release 975 mg PO DAILY SUPPLEMENT 05/20/22 furosemide 40 mg tablet 40 mg PO DAILY WATER PILL 05/20/22 lisinopril 20 mg tablet 20 mg PO DAILY HTN 05/20/22 metformin 500 mg tablet 1,000 mg PO BID 05/20/22 omeprazole 40 mg capsule,delayed release 40 mg PO DAILY GERD 05/20/22 simvastatin 40 mg tablet 40 mg PO QHS HLD 05/20/22 sitagliptin phosphate 25 mg tablet (Januvia) 25 mg PO DAILY DM 05/20/22 umeclidinium 62.5 mcg/actuation blister powder for inhalation (Incruse Ellipta) 1 inh inhalation DAILY 05/20/22 aspirin 81 mg tablet,delayed release 81 mg PO BID 14 days #28 tabs 05/31/22 oxycodone 5 mg tablet 5 - 10 mg PO Q4H PRN PRN Pain Score 4-10 7 days #42 tabs 05/31/22 Hospital Course Summary of Care Provided Minutes Spent on Discharge: 15 Hospital Course: Patient underwent uncomplicated right reverse shoulder arthroplasty 05/30/2022. He is placed in observation overnight for early convalescence and medical monitoring. Patient is able to be safely discharged home on postoperative day #1. Patient had some mild postoperative urinary retention which was treated with fluids and Flomax. He was discharged on 5 days of oral Flomax. No other medical or surgical complications were encountered throughout his stay. Physical Exam Narrative General - A&Ox3, NAD. VSS/AF. Right upper Extremity - SILT & motor intact in radial, ulnar, musculocutaneous, axillary, and median nerve distributions. Radial, ulnar pulses 2+. Compartments soft and compressible. BCR in finger tips. Sling in place. Incisional dressing C/D/I. Negative Homans' sign bilaterally Weight / BMI Weight Weight: 174 lb 2.643 oz Body Mass Index (BMI) 27.2 ABG / Lab / Microbiology Data Result Diagrams: 05/31/22 05:45 05/31/22 05:45 Microbiology: Microbiology 05/16/22 12:44 Swab (Method) Nasal Screen MRSA/MSSA - Final Meaningful Use Info Meaningful Use Diagnoses (Choose all that apply): None applicable Discharge Plan Admission Admit Date/Time: 05/30/22 12:52 Primary Reason for Your Visit: Right shoulder replacement Attending Provider: Дмитрий Gonzales Primary Care Provider: Jefry Gregory Consulting Providers: Mary Ellen Castillo Instructions Additional Instructions / Restrictions: Follow preprinted instructions from your surgeons office Discharge Orders/Prescriptions Prescriptions: New aspirin 81 mg Tablet,Delayed Release (Dr/Ec) 81 mg PO BID 14 Days Qty: 28 0RF oxycodone 5 mg Tablet 5 - 10 mg PO Q4H PRN PRN (Reason: Pain Score 4-10) 7 Days Qty: 42 0RF No Action celecoxib 200 mg Capsule 400 mg PO BID furosemide 40 mg tablet 40 mg PO DAILY Label Comments: TAKE 1 TABLET BY MOUTH ONCE DAILY metformin 500 mg tablet 1,000 mg PO BID carvedilol 25 mg tablet 25 mg PO BID Label Comments: TAKE 1 TABLET BY MOUTH TWICE DAILY WITH MEALS lisinopril 20 mg tablet 20 mg PO DAILY Label Comments: TAKE 1 TABLET BY MOUTH ONCE DAILY omeprazole 40 mg capsule,delayed release(DR/EC) 40 mg PO DAILY Label Comments: TAKE 1 CAPSULE BY MOUTH ONCE DAILY simvastatin 40 mg tablet 40 mg PO QHS Label Comments: TAKE 1 TABLET BY MOUTH NIGHTLY aspirin 81 mg Tablet 81 mg PO DAILY albuterol sulfate 90 mcg/actuation HFA aerosol inhaler 2 inh INHALATION Q6H PRN PRN (Reason: Wheezing) Label Comments: INHALE 2 PUFFS BY MOUTH EVERY 6 HOURS NEEDED FOR WHEEZING ferrous sulfate 325 mg (65 mg iron) tablet,delayed release (/EC) 975 mg PO DAILY Label Comments: TAKE 1 TABLET BY MOUTH THREE TIMES DAILY WITH MEALS. Januvia 25 mg tablet 25 mg PO DAILY Label Comments: TAKE 1 TABLET BY MOUTH ONCE DAILY Incruse Ellipta 62.5 mcg/actuation blister with device 1 inh INHALATION DAILY Label Comments: INHALE 1 PUFF BY MOUTH ONCE DAILY Other Ambulatory Orders: 12 Lead EKG (Routine) Timeframe: [id number] Facility: [facility] - Location: Cardiovascular Services Ordered By: Dr. Дмитрий Gonzales Referrals / Follow Up: Jefry Gregory DO [Primary Care Provider] - Дмитрий Gonzales DO [Med Staff - Active Staff] - Within 2 Weeks Disposition Disposition (needs filled in before D/C Order can be placed): Home, Self Care
== END 2022-05-31 17:28 | disposition home or self-care (01) ==
LOC: MS3 05-31 07:50
PROVIDERS: Anesthesiology; Admitting Provider Student in an Organized Health Care Education/Training Program; Visit Provider Student in an Organized Health Care Education/Training Program
PROC: (CPT 23472; principal; 2022-05-30 07:00)
DX: M19.011 Primary osteoarthritis, right shoulder (principal); J44.9 Chronic obstructive pulmonary disease, unspecified; E11.9 Type 2 diabetes mellitus without complications; I25.10 Atherosclerotic heart disease of native coronary artery without angina pectoris; K21.9 Gastro-esophageal reflux disease without esophagitis; F17.210 Nicotine dependence, cigarettes, uncomplicated; Z79.899 Other long term (current) drug therapy; Z79.82 Long term (current) use of aspirin; G47.33 Obstructive sleep apnea (adult) (pediatric); Z79.84 Long term (current) use of oral hypoglycemic drugs; Z86.19 Personal history of other infectious and parasitic diseases; E78.00 Pure hypercholesterolemia, unspecified; R33.9 Retention of urine, unspecified; Z87.898 Personal history of other specified conditions; Z86.2 Personal history of diseases of the blood and blood-forming organs and certain disorders involving the immune mechanism; Z86.79 Personal history of other diseases of the circulatory system
CPT/HCPCS: 23472; 01638; 36415; 71046; 73030; 80048; 82040; 82962; 83036; 83735; 85025; 85027; 85610; 85730; 87077; 87081; 88305; 88311; 93005; 94640; 96365; 96366; 97166; 99218; 99251; 99406; C1776; J7120; G0378; G0463; J2405